=== PATIENT | male | born 1965 | race Caucasian/White ===

== ENCOUNTER 2018-10-07 09:00 | Inpatient (IN) ==
[2018-10-07] MEDS ORDERED: niCARdipine Inj 25 MG/10 ML Vial ONE (09:06)
--- NOTE | 2018-10-07 09:19 | XR ---
EXAM DATE: 10/07/2018 9:13 AM EST AGE/SEX: 89 years / Male INDICATIONS: Trauma alert, fall from ladder CLINICAL DATA: This is the patient's initial encounter. Patient reports that signs and symptoms have been present for 1 day and indicates a pain score of Nonresponsive. MEDICAL/SURGICAL HISTORY: Non-responsive. Non-responsive. COMPARISON: No prior exams available for comparison. FINDINGS: A single AP view of the chest demonstrates the lungs to be symmetrically aerated without evidence of mass, infiltrate or effusion. The cardiomediastinal contours are unremarkable. Osseous structures a re intact. CONCLUSION: Negative examination. Electronically signed by: Carlin Patterson MD 10/07/2018 9:17 AM EST
--- NOTE | 2018-10-07 09:22 | CT ---
EXAM DATE: 10/07/2018 9:16 AM EST AGE/SEX: 89 years / Male INDICATIONS: Trauma alert, fall. CLINICAL DATA: This is the patient's initial encounter. Patient reports that signs and symptoms have been present for 1 day and indicates a pain score of Nonresponsive. MEDICAL/SURGICAL HISTORY: Non-responsive. Non-responsive. RADIATION DOSE: 66.34 CTDI (mGy) COMPARISON: No prior exams available for comparison. TECHNIQUE: CT of the head without contrast. Using automated exposure control and adjustment of the mA and/or kV according to patient size, radiation dose was kept as low as reasonably achievable to ob tain optimal diagnostic quality images. DICOM format image data is available electronically for revi ew and comparison. FINDINGS: Cerebrum: The ventricles are normal for age. No evidence of midline shift, mass lesion, hemorrhage or acute infarction. No extraaxial fluid collections are seen. Posterior Fossa: The examination demonstrates a 1.0 x 0.9 cm cystic area along the lateral margin of the left cerebellar hemisphere. This may represent a small arachnoid cyst however, further assessmen t of this with MRI would be of benefit. This is incompletely characterized by this examination. There is no significant mass effect associated with this. Extracranial: The visualized portion of the orbits is intact. Skull: The calvaria is intact. No evidence of skull fracture. CONCLUSION: 1. 1.0 x 0.9 cm well-circumscribed cystic area along the lateral margin of the left cerebellar hemis phere. This is indeterminate in appearance by noncontrast CT imaging. Further evaluation with contras t-enhanced MRI would be of benefit. 2. No acute intracranial hemorrhage is present. Electronically signed by: Carlin Patterson MD 10/07/2018 9:21 AM EST
--- NOTE | 2018-10-07 09:23 | XR ---
EXAM DATE: 10/07/2018 9:16 AM EST AGE/SEX: 89 years / Male INDICATIONS: Trauma alert, fall from ladder CLINICAL DATA: This is the patient's initial encounter. Patient reports that signs and symptoms have been present for 1 day and indicates a pain score of Nonresponsive. MEDICAL/SURGICAL HISTORY: Non-responsive. Non-responsive. COMPARISON: No prior exams available for comparison. FINDINGS: Examination is a trauma AP only which is somewhat limited as the lateral most portion of the left gaurang e of the ileum is not seen. The bony structures do appear grossly intact. The bony mineralization is within normal limits. CONCLUSION: No acute bony abnormality identified. Please see above. Electronically signed by: Carlin Patterson MD 10/07/2018 9:22 AM EST
--- NOTE | 2018-10-07 09:27 | CT ---
EXAM DATE: 10/07/2018 9:20 AM EST AGE/SEX: 89 years / Male INDICATIONS: Trauma alert, fall. CLINICAL DATA: This is the patient's initial encounter. Patient reports that signs and symptoms have been present for 1 day and indicates a pain score of Nonresponsive. MEDICAL/SURGICAL HISTORY: Non-responsive. Non-responsive. RADIATION DOSE: 22.52 CTDI (mGy) COMPARISON: No prior exams available for comparison. TECHNIQUE: Contiguous axial images were obtained using helical multirow detector technique. The vol umetric data was post-processed with multiplanar reconstruction in oblique axial, sagittal, and coron al planes. Using automated exposure control and adjustment of the mA and/or kV according to patient s ize, radiation dose was kept as low as reasonably achievable to obtain optimal diagnostic quality jayy ges. DICOM format image data is available electronically for review and comparison. FINDINGS: Vertebrae: Normal vertebral body height. Alignment: Normal. No subluxation. C2-3: The bony spinal canal is normal in size. No evidence of disc bulge or herniation. The neural foramina are bilaterally patent. C3-4: The bony spinal canal is normal in size. No evidence of disc bulge or herniation. The neural foramina are bilaterally patent. C4-5: The bony spinal canal is normal in size. No evidence of disc bulge or herniation. The neural foramina are bilaterally patent. C5-6: The bony spinal canal is normal in size. No evidence of disc bulge or herniation. The neural foramina are bilaterally patent. C6-7: The bony spinal canal is normal in size. No evidence of disc bulge or herniation. The neural foramina are bilaterally patent. C7-T1: The bony spinal canal is normal in size. No evidence of disc bulge or herniation. The neura l foramina are bilaterally patent. CONCLUSION: 1. Negative CT Cervical Spine non contrast. Electronically signed by: Carlin Patterson MD 10/07/2018 9:26 AM EST
[2018-10-07 09:28] LABS: Baso % (Auto) 0.3 % (0.0-2.0); Eos % (Auto) 0.4 % (0.0-4.0); Hemoglobin 14.9 gm/dL (13.0-17.0); Lymph # (Auto) 1.2 th/mm3 (1.0-4.8); Lymph % (Auto) 20.2 % (9.0-44.0); Mean Corpuscular HGB Conc 33.7 % (32.0-36.0); Mean Corpuscular Hemoglobin 33.3 pg (27.0-34.0); Mean Corpuscular Volume 98.6 fL (80.0-100.0); Mean Platelet Volume 7.9 fL (7.0-11.0); Mono # (Auto) 0.4 th/mm3 (0.0-0.9); Mono % (Auto) 5.8 % (0.0-8.0); Neut # (Auto) 4.5 th/mm3 (1.8-7.7); Neut % (Auto) 73.3 % (16.0-70.0); Platelet Count 220 th/mm3 (150-450); Red Blood Count 4.47 mil/mm3 (4.50-5.90); Red Cell Distribution Width 12.6 % (11.6-17.2); White Blood Count 6.2 th/mm3 (4.0-11.0)
[2018-10-07 09:36] LABS: Activated Partial Thrombo Time 25.7 sec (23.4-31.7); Prothrombin Time 10.1 sec (9.8-11.6)
[2018-10-07] MEDS ORDERED: HYDROmorphone PF Inj 1 MG/ML Ampul IV.PUSH PRN (09:41)
[2018-10-07] MEDS ORDERED: Sod Chloride 0.9% Inj 1,000 ML IV.CONT SCH (09:45)
--- NOTE | 2018-10-07 09:49 | ED ---
HPI General Stated Complaint: Trauma Alert Time Seen by Provider: 10/07/18 09:43 Source: patient and EMS Mode of arrival: EMS History of Present Illness HPI narrative: The patient's approximately 53 years old and arrives as a trauma alert. EMS called ahead stating the patient fell backwards striking the occipital scalp. Patient was standing and fell backwards. in route to the ED loss of consciousness multiple times occurred. EMS reports the GCS dropped to 12-13. Repetitive questioning observed. In the ER the patient complains of pain in the occipital scalp. He was seen upon arrival by the undersigned and trauma surgery. EMS gave Zofran in route which helped with nausea that was also reported in transfer. MD complaint: Reports fall Onset (ago): minute(s) (30) Loss of Consciousness: yes Location: Reports head Context: Reports fall Associated symptoms: Reports confusion Treatments prior to arrival: Reports IV Related Data Home Medications Medication Instructions Recorded Confirmed No Known Home Medications 10/07/18 10/07/18 Allergies Allergy/AdvReac Type Severity Reaction Status Date / Time No Known Allergies Allergy Verified 10/07/18 09:47 Review of Systems ROS Unobtainable ROS Unobtainable: unobtainable due to mental status PMFSH Social History Social History Recent Travel in [facility] within the Last 8 Weeks: No Recent Out of Country Travel within the Last 8 Weeks: No Exam Narrative Exam Narrative: GENERAL: Approximate 53-year-old male mild distress due to pain and/or anxiety, GCS 15 SKIN: Focused skin assessment warm/dry. HEAD: Atraumatic. Normocephalic. EYES: Pupils equal and round. No scleral icterus. No injection or drainage. ENT: No nasal bleeding or discharge. Mucous membranes pink and moist. NECK: Trachea midline. No JVD. CARDIOVASCULAR: Regular rate and rhythm. No murmur appreciated. RESPIRATORY: No accessory muscle use. Clear to auscultation. Breath sounds equal bilaterally. GASTROINTESTINAL: Abdomen soft, non-tender, nondistended. Hepatic and splenic margins not palpable. MUSCULOSKELETAL: No focal spinal tenderness in the lumbar distribution. Minimal in the upper thoracic spinous processes. NEUROLOGICAL: ANO x3. Cranial nerves III through XII normal. Motor in the upper and lower extremities is equal bilaterally throughout. PSYCHIATRIC: Appropriate mood and affect; insight and judgment normal. Course Initial Documented Vital Signs Pulse Oximetry 100 10/07/18 09:11 Last Documented Vital Signs Pulse Oximetry 100 10/07/18 09:11 Critical Care Time Critical Care Time: Yes Total Critical Care Time: 35 Attestation: Aggregate critical care time was 35 minutes. Time to perform other separately billable procedures was not included in the critical care time. My time did not include minutes spent treating any other patients simultaneously or on activities that did not directly contribute to the patient's treatment. The services I provided to this patient were to treat and/or prevent clinically significant deterioration that could result in: Intracranial hemorrhage, permanent neurologic deficit I provided critical care services requiring my management, as noted below: Chart data review, documentation time, medication orders and management, vital sign assessments/reviewing monitor data, ordering and reviewing lab tests, ordering and interpreting/reviewing x-rays and diagnostic studies, care of the patient and discussion of the patient with the admitting physicians. Medical Decision Making MDM Narrative Medical decision making narrative: The patient had multiple loss of consciousness events in route to the ER. GCS 15 upon arrival here. Hypertension improved by the time the patient is a CT scan with a blood pressure of about 170/90 and heart rate in the 100s. Imaging reveals no acute intracranial process. A nonspecific lesion is observed. Patient will spend the [facility] in the [facility]. Medical Screen Exam Complete: Yes Emergency Medical Condition: Yes Lab Data Result diagrams: 10/07/18 09:04 Lab Results 10/07/18 10/07/18 Range/Units 09:04 09:04 WBC 6.2 (4.0-11.0) th/mm3 RBC 4.47 L (4.50-5.90) mil/mm3 Hgb 14.9 (13.0-17.0) gm/dL Hct 44.0 (39.0-51.0) % MCV 98.6 (80.0-100.0) fL MCH 33.3 (27.0-34.0) pg MCHC 33.7 (32.0-36.0) % RDW 12.6 (11.6-17.2) % Plt Count 220 (150-450) th/mm3 MPV 7.9 (7.0-11.0) fL Neut % (Auto) 73.3 H (16.0-70.0) % Lymph % (Auto) 20.2 (9.0-44.0) % [place] % (Auto) 5.8 (0.0-8.0) % Eos % (Auto) 0.4 (0.0-4.0) % Baso % (Auto) 0.3 (0.0-2.0) % Neut # (Auto) 4.5 (1.8-7.7) th/mm3 Lymph # (Auto) 1.2 (1.0-4.8) th/mm3 [place] # (Auto) 0.4 (0.0-0.9) th/mm3 Eos # (Auto) 0.0 (0.0-0.4) th/mm3 Baso # (Auto) 0.0 (0.0-0.2) th/mm3 WBC Differential . Differential Comment Auto diff final PT 10.1 (9.8-11.6) sec INR 1.0 Ratio APTT 25.7 (23.4-31.7) sec Imaging Data Radiologist's impression: Chest X-Ray 10/07/18 09:02 CONCLUSION: Negative examination. Pelvis X-Ray 10/07/18 09:02 CONCLUSION: No acute bony abnormality identified. Please see above. Cervical Spine CT 10/07/18 09:03 CONCLUSION: 1. Negative CT Cervical Spine non contrast. Head CT 10/07/18 09:03 CONCLUSION: 1. 1.0 x 0.9 cm well-circumscribed cystic area along the lateral margin of the left cerebellar hemisphere. This is indeterminate in appearance by noncontrast CT imaging. Further evaluation with contrast-enhanced MRI would be of benefit. 2. No acute intracranial hemorrhage is present. Discharge Plan Discharge Disposition Patient Disposition: 30 Still Patient Physicians Team ED Provider: Carlin Meléndez Other Providers: Angie Andersen ; Ina Steve ; Bryan Pérez ; Frakn Worley ; Susan Paz ; Mayur Cortez ; [place] ; Jose Antonio Brown ; [employer] [facility] ; Go [place] Rxs /Orders / Referrals /Forms Prescriptions: No Action No Known Home Medications RF: 0 Discharge Interventions Interventions: Vital Signs Last Done: 10/07/18 09:49 Status ED Status: With Doctor
[2018-10-07] MEDS ORDERED: Pantoprazole Inj 40 MG Vial IV.PUSH SCH (10:00)
--- NOTE | 2018-10-07 10:05 | XR ---
EXAM DATE: 10/07/2018 9:53 AM EST AGE/SEX: 89 years / Male INDICATIONS: Trauma, fall. Right shoulder pain. CLINICAL DATA: This is the patient's initial encounter. Patient reports that signs and symptoms have been present for 1 day and indicates a pain score of 2/10. MEDICAL/SURGICAL HISTORY: None. None. COMPARISON: No prior exams available for comparison. FINDINGS: There are mild degenerative changes acromioclavicular joint with minimal subacromial spurring. Alignm ent is anatomic. Lung apex clear. CONCLUSION: Limited portable exam, no obvious fracture. Soft tissue swelling posterior to scapula. Electronically signed by: Carlitos Patterson MD 10/07/2018 10:04 AM EST
--- NOTE | 2018-10-07 10:05 | CT ---
EXAM DATE: 10/07/2018 9:40 AM EST AGE/SEX: 89 years / Male INDICATIONS: Trauma alert, fall. CLINICAL DATA: This is the patient's initial encounter. Patient reports that signs and symptoms have been present for 1 day and indicates a pain score of Nonresponsive. MEDICAL/SURGICAL HISTORY: Non-responsive. Non-responsive. RADIATION DOSE: 31.45 CTDI (mGy) ; Combined studies [place] [facility] [place] 10/07/[place]. . TECHNIQUE: Contiguous axial images were acquired with a multirow detector CT scanner without contras t. Multiplanar reconstructions in the sagittal and coronal plane were also performed. Using automate d exposure control and adjustment of the mA and/or kV according to patient size, radiation dose was k ept as low as reasonably achievable to obtain optimal diagnostic quality images. DICOM format image data is available electronically for review and comparison. FINDINGS: Vertebrae: Normal vertebral body height. Alignment: Normal. No subluxation. T12-L1: The thecal sac has a normal diameter. No evidence of disc bulge or protrusion. The neural foramina are patent bilaterally. L1-L2: The thecal sac has a normal diameter. No evidence of disc bulge or protrusion. The neural f oramina are patent bilaterally. L2-L3: The thecal sac has a normal diameter. No evidence of disc bulge or protrusion. The neural f oramina are patent bilaterally. L3-L4: The thecal sac has a normal diameter. No evidence of disc bulge or protrusion. The neural f oramina are patent bilaterally. L4-L5: The thecal sac has a normal diameter. No evidence of disc bulge or protrusion. The neural f oramina are patent bilaterally. L5-S1: The examination demonstrates a degenerated disc with loss of disc space height and a small ri ght paracentral disc bulge. This slightly encroaches upon the base of the foramina on the right. The foramina on the left is adequate. There is some mild facet arthritis bilaterally. CONCLUSION: 1. Right-sided disc bulge at L5-S1. 2. Mild facet arthritis at L5-S1. 3. No acute fracture of the lumbar spine identified. Electronically signed by: Carlin Patterson MD 10/07/2018 10:04 AM EST
--- NOTE | 2018-10-07 10:07 | CT ---
EXAM DATE: 10/07/2018 9:38 AM EST AGE/SEX: 89 years / Male INDICATIONS: Trauma alert, fall. CLINICAL DATA: This is the patient's initial encounter. Patient reports that signs and symptoms have been present for 1 day and indicates a pain score of Nonresponsive. MEDICAL/SURGICAL HISTORY: Non-responsive. Non-responsive. RADIATION DOSE: 31.45 CTDI (mGy) ; Combined studies COMPARISON: [facility], CT CERVICAL SPINE W/O CONTRAST, 10/07/2018. . TECHNIQUE: Contiguous axial images were acquired using a multirow detector CT scanner without contra st. Multiplanar reconstruction in the sagittal and coronal planes was performed. Using automated exp osure control and adjustment of the mA and/or kV according to patient size, radiation dose was kept a s low as reasonably achievable to obtain optimal diagnostic quality images. DICOM format image data is available electronically for review and comparison. FINDINGS: Vertebrae: Normal vertebral body height. Alignment: Normal. No subluxation. T1 - T2: Normal. T2 - T3: The thecal sac has a normal diameter. No evidence of disc bulge or protrusion. T3 - T4: The thecal sac has a normal diameter. No evidence of disc bulge or protrusion. T4 - T5: The thecal sac has a normal diameter. No evidence of disc bulge or protrusion. T5 - T6: The thecal sac has a normal diameter. No evidence of disc bulge or protrusion. T6 - T7: The thecal sac has a normal diameter. No evidence of disc bulge or protrusion. T7 - T8: The thecal sac has a normal diameter. No evidence of disc bulge or protrusion. T8 - T9: The thecal sac has a normal diameter. No evidence of disc bulge or protrusion. T9 - T10: The thecal sac has a normal diameter. No evidence of disc bulge or protrusion. T10 - T11: The thecal sac has a normal diameter. No evidence of disc bulge or protrusion. T11 - T12: The thecal sac has a normal diameter. No evidence of disc bulge or protrusion. T12 - L1: The thecal sac has a normal diameter. No evidence of disc bulge or protrusion. Apparent 1 cm soft tissue nodule anteriorly right lung. CONCLUSION: 1. Negative for acute fracture 2. If patient remains symptomatic MRI would be of benefit 3. 1 cm nodule anteriorly right lung Electronically signed by: Carlitos Patterson MD 10/07/2018 10:06 AM EST
--- NOTE | 2018-10-07 10:27 | MH ---
cc: Jose Antonio Brown MD DATE OF ADMISSION: 10/07/2018 HISTORY OF PRESENT ILLNESS: This is a 53-year-old male who reports fell back, hitting his head, no loss of consciousness. He was brought in as a trauma alert. On my arrival, the patient was on backboard and C-collar, awake, alert. The patient states he slipped and fell. He complains of a headache, left shoulder pain, and mid back pain. No chest pains. No shortness of breath. No abdominal pain. No paresthesias. No visual changes. PAST MEDICAL HISTORY: Negative. PAST SURGICAL HISTORY: Negative. MEDICATIONS: The patient is on no chronic. ALLERGIES: NO KNOWN DRUG ALLERGIES. SOCIAL HISTORY: Does not smoke. FAMILY HISTORY: Noncontributory. REVIEW OF SYSTEMS: Significant for above. All other 10 point review negative. PHYSICAL EXAMINATION: GENERAL: The patient is lying in a stretcher in no acute distress. HEENT: His pupils are equal and reactive. His trachea is midline. NECK: Without JVD. C-collar, nontender. LUNGS: Clear. CARDIOVASCULAR: Regular. GASTROINTESTINAL: Soft, nontender. MUSCULOSKELETAL: No deformities. NEUROLOGIC: Nonfocal. The patient's back has tenderness to his mid thoracic region. No crepitus. LABORATORY DATA: Hemoglobin 14.9, hematocrit of 44. Electrolytes within normal limits. RADIOLOGIC IMAGES: CT of the head: No intracranial hemorrhage. CT of the cervical spine: No acute fracture. Chest x-ray negative. Pelvis x-ray negative. CT of the thoracic spine pending. ASSESSMENT AND PLAN: This is a patient status post fall, questionable syncopal event, hypertensive on arrival. The patient is being admitted. We will obtain a syncope workup. Provide pain management, follow x-rays. MD NATALEE Burns/em , 09:55 AM , 10:03 AM
--- NOTE | 2018-10-07 11:36 | US ---
EXAM DATE: 10/07/2018 11:29 AM EST AGE/SEX: 89 years / Male INDICATIONS: Syncope. CLINICAL DATA: This is the patient's initial encounter. Patient reports that signs and symptoms have been present for 1 day and indicates a pain score of 0/10. MEDICAL/SURGICAL HISTORY: . Unable to obtain. . Unable to obtain. COMPARISON: No prior exams available for comparison. VELOCITY PARAMETERS: ICA/CCA Ratio: Right 0.9 , Left 1.1 ICA: Right 68 cm/sec, Left 78 cm/sec CCA: Right 78 cm/sec, Left 68 cm/sec ECA: Right 58 cm/sec, Left 70 cm/sec Vertebral: Right 39 cm/sec antegrade, Left 51 cm/sec antegrade FINDINGS: Right Carotid: No significant plaque is visualized.The waveforms are within normal limits. Left Carotid: Mild arteriosclerotic plaque is visualized. The waveforms are within normal limits. Other: None. CONCLUSION: 1. Right Internal Carotid Artery: No hemodynamically significant carotid artery stenosis identified. 2. Left Internal Carotid Artery: No hemodynamically significant carotid artery stenosis identified. Electronically signed by: Carlin Patterson MD 10/07/2018 11:35 AM EST
[2018-10-07 14:17] VITALS: BP 153/87; PULSE 78; RESP 15; TEMP 98.6; O2SAT 96
--- NOTE | 2018-10-07 16:51 | P.DS ---
Date of admission: 10/07/18 09:53 Primary care physician: Lee Vazquez MD Attending physician on discharge: Frank Molina date of discharge: 10/07/18 Brief History from admission: Mechanical fall. DS: Summary Hospital Course: [place]: This is a 53-year-old male who sustained a mechanical fall. He states he fell backwards. Questionable LOC. Injuries: None Patient had a full trauma workup, including carotid ultrasounds. All were negative. The patient is now tolerating a po diet. Eating and drinking well. Pain is being managed well with PO pain medications, patient can manage his pain with OTC Tylenol p.o. Pt is having regular bowel movements, and have recommended to patient to continue with stool softeners while taking narcotic pain medications to prevent constipation. No home PT needs. All follow up appointments have been provided and discussed with the patient. It is recommended that the patient keeps all his follow up appointments for continued recovery. 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 Patient's condition and plan of care discussed with collaborating trauma surgeon. He is agreeable to plan for discharge today. Therefore, the patient is stable to be safely discharged home from a trauma surgery standpoint. Thank you for allowing us to participate in his care. We wish him the best in his recovery. Mechanical falls Complete trauma scan All scans negative Carotid ultrasound negative Supportive care Pain management Encourage out of bed PT ordered Patient is clear for discharge home Patient encouraged to follow-up with PCP due to incidental findings - Time Spent with Patient Total time spent providing and/or coordinating discharge services: Greater than 30 minutes - Quality: VTE Deep Vein Thrombosis/Pulmonary Embolism Present on Admission: No Exam Vital signs: Vital Signs 10/07/18 09:11 10/07/18 09:49 10/07/18 09:53 Temperature Pulse Rate 96 H Respiratory Rate 20 Blood Pressure 164/90 H Pulse Oximetry 100 100 100 10/07/18 10:50 10/07/18 11:05 10/07/18 11:35 Temperature Pulse Rate 94 H 86 87 Respiratory Rate 21 21 18 Blood Pressure 158/86 H 146/85 H 169/98 H Pulse Oximetry 99 100 10/07/18 12:00 10/07/18 13:00 10/07/18 14:00 Temperature 98.6 F Pulse Rate 89 99 H 78 Respiratory Rate 10 L 24 15 Blood Pressure 151/92 H 135/97 H 153/87 H Pulse Oximetry 99 97 96 Intake & Output 10/06/18 10/07/18 10/07/18 18:59 06:59 18:59 Weight 111.13 kg Narrative: GENERAL: This is a 53-year-old male patient sitting up in bed. No distress noted. SKIN: Warm and dry. HEAD: Atraumatic. Normocephalic. EYES: PERRLA ENT: No nasal bleeding or discharge. Mucous membranes pink and moist. NECK: Trachea midline. No JVD. CARDIOVASCULAR: Regular rate and rhythm. RESPIRATORY: No accessory muscle use. Lungs are clear to auscultation. Breath sounds equal bilaterally. No distress or dyspnea. GASTROINTESTINAL: BS + x 4 quads. Abdomen soft, non-tender, nondistended. MUSCULOSKELETAL: Extremities without cyanosis, or edema. + peripheral pulses x 4 extremities. Warm with good capillary refill and sensation. MAEW. NEUROLOGICAL: Awake and alert x 3. Normal speech and pattern. Results Procedures completed during hospitalization: . Labs on day of discharge: Labs from last 24 hours 10/07/18 10/07/18 10/07/18 11:45 09:04 09:04 WBC RBC Hgb POC Hgb (Calc) 14.6 Hct POC Hct 43.0 MCV MCH MCHC RDW Plt Count MPV Neut % (Auto) Lymph % (Auto) [place] % (Auto) Eos % (Auto) Baso % (Auto) Neut # (Auto) Lymph # (Auto) [place] # (Auto) Eos # (Auto) Baso # (Auto) WBC Differential Differential Comment PT INR APTT POC Sodium 143 POC Potassium 3.8 POC Chloride 104 POC BUN 14 POC Creatinine 0.9 POC Glucose 111 H Nasal Screen MRSA (PCR) Not detected Blood Type O Positive Antibody Screen Negative 10/07/18 10/07/18 09:04 09:04 WBC 6.2 RBC 4.47 L Hgb 14.9 POC Hgb (Calc) Hct 44.0 POC Hct MCV 98.6 MCH 33.3 MCHC 33.7 RDW 12.6 Plt Count 220 MPV 7.9 Neut % (Auto) 73.3 H Lymph % (Auto) 20.2 [place] % (Auto) 5.8 Eos % (Auto) 0.4 Baso % (Auto) 0.3 Neut # (Auto) 4.5 Lymph # (Auto) 1.2 [place] # (Auto) 0.4 Eos # (Auto) 0.0 Baso # (Auto) 0.0 WBC Differential . Differential Comment Auto diff final PT 10.1 INR 1.0 APTT 25.7 POC Sodium POC Potassium POC Chloride POC BUN POC Creatinine POC Glucose Nasal Screen MRSA (PCR) Blood Type Antibody Screen - Impressions ITS Impressions Carotid Doppler Study 10/07/18 00:00 CONCLUSION: 1. Right Internal Carotid Artery: No hemodynamically significant carotid artery stenosis identified. 2. Left Internal Carotid Artery: No hemodynamically significant carotid artery stenosis identified. Lumbar Spine CT 10/07/18 00:00 CONCLUSION: 1. Right-sided disc bulge at L5-S1. 2. Mild facet arthritis at L5-S1. 3. No acute fracture of the lumbar spine identified. Shoulder X-Ray 10/07/18 00:00 CONCLUSION: Limited portable exam, no obvious fracture. Soft tissue swelling posterior to scapula. Thoracic Spine CT 10/07/18 00:00 CONCLUSION: 1. Negative for acute fracture 2. If patient remains symptomatic MRI would be of benefit 3. 1 cm nodule anteriorly right lung Chest X-Ray 10/07/18 09:02 CONCLUSION: Negative examination. Pelvis X-Ray 10/07/18 09:02 CONCLUSION: No acute bony abnormality identified. Please see above. Cervical Spine CT 10/07/18 09:03 CONCLUSION: 1. Negative CT Cervical Spine non contrast. Head CT 10/07/18 09:03 CONCLUSION: 1. 1.0 x 0.9 cm well-circumscribed cystic area along the lateral margin of the left cerebellar hemisphere. This is indeterminate in appearance by noncontrast CT imaging. Further evaluation with contrast-enhanced MRI would be of benefit. 2. No acute intracranial hemorrhage is present. Discharge Plan - Discharge Disposition Patient Disposition: Discharge Home - Discharge Condition Condition: Stable - Discharge Order Discharge Orders: Discharge Order (Routine); Ordered 10/07/18 Ordered By: Ina Steve - Discharge Details Anticipated Discharge Date: 10/07/18 - Physicians Team Primary Care Provider: Lee Vazquez Attending Provider: Jose Antonio Brown Other Providers: Bryan Pérez MD ; Mt Lees MD ; [facility] [employer] [facility] ; Jose Antonio Brown MD ; Ina Steve ARNP ; Mayur Cortez MD ; Angie Andersen MD ; Susan Paz ARNP ; Frank Worley MD ; Go Davila MD
--- NOTE | 2018-10-07 18:52 | P.CONNS ---
History of Present Illness Service: neurosurgery Consult date: 10/07/18 Requesting Physician: Jose Antonio Brown Reason for Consult: Trauma alert Primary Care Provider: Lee Vazquez MD Chief Complaint: syncope, head injury History of Present Illness: This is approximately 53 year old male brought to [address] ER as a trauma alert. EMS called ahead stating the patient fell backwards striking the occipital scalp. Patient was standing and fell backwards. in route to the ED loss of consciousness multiple times occurred. EMS reports the GCS dropped to 12-13. Repetitive questioning observed. In the ER the patient complains of pain in the occipital scalp. He was seen upon arrival by the undersigned and trauma surgery. EMS gave Zofran in route which helped with nausea that was also reported in transfer. PMFSH - History History Provided By: Patient - Tobacco History Second Hand Smoke Exposure: No Smoking Status: Never smoker - Alcohol History How Often Do You Have a Drink Containing Alcohol: Monthly or less - Substance Use History Substance History: No History of Abuse - Travel History Recent Travel in the [place] Within the Last 8 Weeks: No Recent Travel Out of the Country Within the Last 8 Weeks: No - Immunization History Hx Influenza Vaccine This Season: Yes Medications and Allergies Allergies Allergy/AdvReac Type Severity Reaction Status Date / Time No Known Allergies Allergy Verified 10/07/18 09:47 Home Medications Medication Instructions Recorded Confirmed Type No Known Home Medications 10/07/18 10/07/18 History Exam Vital signs: Vital Signs 10/07/18 09:11 10/07/18 09:49 10/07/18 09:53 Temperature Pulse Rate 96 H Respiratory Rate 20 Blood Pressure 164/90 H Pulse Oximetry 100 100 100 10/07/18 10:50 10/07/18 11:05 10/07/18 11:35 Temperature Pulse Rate 94 H 86 87 Respiratory Rate 21 21 18 Blood Pressure 158/86 H 146/85 H 169/98 H Pulse Oximetry 99 100 10/07/18 12:00 10/07/18 13:00 10/07/18 14:00 Temperature 98.6 F Pulse Rate 89 99 H 78 Respiratory Rate 10 L 24 15 Blood Pressure 151/92 H 135/97 H 153/87 H Pulse Oximetry 99 97 96 Intake & Output 10/06/18 10/07/18 10/07/18 18:59 06:59 18:59 Weight 111.13 kg Narrative: The patient is alert, awake. Comfortable, in no acute distress. Speech is fluent. Cranial nerve examination: pupils to be equal, round and reactive to light. Extra-ocular movements are intact. Facial motor and sensory function are normal and symmetrical. Gross hearing appears intact. Sternocleidomastoid and trapezius muscles are symmetrical. Other cranial nerves are intact. Neck is soft and supple with a good range of motion without pain. Muscle strength is normal in all muscle groups of both upper and lower extremities. Sensory examination is intact to light touch and pin prick in both the upper and lower extremities. Deep tendon reflexes are symmetrical in both upper and lower extremities. There is a bilateral plantar flexion response. Cerebellar examination is unremarkable, without deficits. Lungs are clear Heart regular rhythm is regular rate Skin warm and dry Results - Laboratory Findings CBC and BMP: 10/07/18 09:04 Abnormal lab findings: Abnormal Labs 10/07/18 10/07/18 09:04 09:04 RBC 4.47 L Neut % (Auto) 73.3 H POC Glucose 111 H Assessment and Plan - Plan I have reviewed the clinical and radiological findings Chest X-Ray 10/07/18 09:02 CONCLUSION: Negative examination. Pelvis X-Ray 10/07/18 09:02 CONCLUSION: No acute bony abnormality identified. Please see above. Cervical Spine CT 10/07/18 09:03 CONCLUSION: 1. Negative CT Cervical Spine non contrast. Head CT 10/07/18 09:03 CONCLUSION: 1. 1.0 x 0.9 cm well-circumscribed cystic area along the lateral margin of the left cerebellar hemisphere. This is indeterminate in appearance by noncontrast CT imaging. Further evaluation with contrast-enhanced MRI would be of benefit. 2. No acute intracranial hemorrhage is present. Neuro: neuro checks in a serial fashion. Non operative treatment. Syncope workup Pulmonary: aggressive pulmonary toilette, nasotracheal suction, and breathing treatments with nebulizers. Daily PT and OT Renal: Continue to monitor closely urine output, BUN and creatinine Endocrine: Monitor serial Acu checks and SSI as needed in detail ID monitor for signs of infection Protonix for stress ulcer prophylaxis Aravind hose and SCD's for DVT prophylaxis Further recommendations will be provided depending on the patient's clinical evaluation and follow up studies.
[2018-10-07] MEDS ORDERED: Docusate Sodium Liq 100 MG/10 ML UDC PO SCH (21:00)
== END 2018-10-07 16:25 | disposition home or self-care (01) ==
LOC: NEPI 09:00 → NEDA 09:53 → EDBD 09:53 → N03 11:32
PROVIDERS: ADMIT Surgery; ATTEND Surgery